=== PATIENT | male | born 1970 | race Caucasian/White ===

== ENCOUNTER 2022-01-05 09:16 | Day surgery (SDC) | payer OTHER ==
[2022-01-05] VITALS (11 sets, daily range): BP systolic 61–129; BP diastolic 37–87
[~2022-01-05] VITALS: Ht 175.3 cm; Wt 100.2 kg
[~2022-01-05 09:16] MED LIST: ATOR10TA52 PO; CARV6.2551 PO; LOSA25TA38 PO; NITR0.4S29 SL; TIOT1AER IN
[2022-01-05] MEDS ORDERED: IODIXANOL 320MG/ML 100ML BTL IV ONE (09:27)
[2022-01-05] MEDS ORDERED: ANGIOMAX 250 MG VIAL IV ONE (09:38)
[2022-01-05] MEDS ORDERED: MIDAZOLAM HCL 2MG/2ML 2ml VIAL (1mg/ml) ONE (09:39)
[2022-01-05] MEDS ORDERED: fentaNYL CITRATE 100 MCG/2 ML VL ONE (09:39)
[2022-01-05] MEDS ORDERED: VERAPAMIL 2.5MG/ML INJ 2ML VIAL IV ONE (09:39)
[2022-01-05] MEDS ORDERED: HEPARIN SODIUM (PORCINE) 5000 UNITS/ML 1ML VIAL ONE (09:39)
[2022-01-05] MEDS ORDERED: SODIUM CHL 0.9% 0 ML ONE (09:40)
[2022-01-05] MEDS ORDERED: LIDOCAINE 2%HCL (LOCAL ANESTH.) INJ 10ml MDV ONE (09:40)
[2022-01-05] MEDS ORDERED: NITROGLYCERIN 5MG/ML 10ML VIAL IV ONE (09:42)
[2022-01-05] MEDS ORDERED: SODIUM CHL 0.9% 50 ML ONE (09:49)
[2022-01-05] MEDS ORDERED: SODIUM CHLORIDE 0.9% 200 ML IV ONE (10:12)
== END 2022-01-05 12:20 | disposition home or self-care (01) ==
LOC: CATH 09:16
PROVIDERS: ATTEND Internal Medicine
DX: R94.39 Abnormal result of other cardiovascular function study (principal); I11.0 Hypertensive heart disease with heart failure; I50.9 Heart failure, unspecified; I25.10 Atherosclerotic heart disease of native coronary artery without angina pectoris; E78.5 Hyperlipidemia, unspecified; J44.9 Chronic obstructive pulmonary disease, unspecified; F17.200 Nicotine dependence, unspecified, uncomplicated; F15.10 Other stimulant abuse, uncomplicated; Z20.822 Contact with and (suspected) exposure to COVID-19
CPT/HCPCS: 93458; C1887; C1894; J1644; J2001; J2250; J3010; J3490; Q9967; U0003; 99152

== ENCOUNTER 2022-12-06 06:33 | Inpatient (IN) | payer OTHER ==
[~2022-12-06] VITALS: Ht 165.1 cm; Wt 90.0 kg
[2022-12-06 07:46] LABS: Basophils # (auto) 0.2 10 ^3/uL (0-0.2); Basophils % (auto) 2.6 % (0.0-2.0); Eosinophils # (auto) 0.1 10 ^3/uL (0-0.8); Eosinophils % (auto) 0.6 % (0.0-7.0); Hemoglobin 15.5 g/dL (13.5-17.5); Lymphocytes # (auto) 1.2 10 ^3/uL (0.4-5.4); Lymphocytes % (auto) 12.8 % (10.0-50.0); Mean Corpuscular Hemoglobin 27.6 pg (28.0-32.0); Mean Corpuscular Hgb Conc. 32.2 g/dL (32.0-36.0); Mean Corpuscular Volume 85.7 fL (80.0-100.0); Monocytes # (auto) 1.5 10 ^3/uL (0-1.3); Monocytes % (auto) 16.7 % (0.0-12.0); Neutrophils # (auto) 6.1 10 ^3/uL (1.6-8.6); Neutrophils % (auto) 67.3 % (37.0-80.0); Nucleated Red Blood Cells % 0.2 %; Red Blood Cells 5.61 10^6/uL (4.5-5.90); Red Cell Distribution Width 17.2 % (11.8-14.3); White Blood Cell 9.1 10^3/uL (4.4-10.8)
[2022-12-06 08:04] LABS: INR 1.42 (0.9-1.15); Partial Thromboplastin Time 30.1 sec (24.6-33.4)
[2022-12-06] MEDS ORDERED: IPRATROPIUM BROM 0.5 MG/2.5ML INH SOL NEB ONE (08:30)
[2022-12-06] MEDS ORDERED: DexAMETHasone SOD PHOS 10MG/1ML VIAL INJ IV ONE (08:30)
[2022-12-06] MEDS ORDERED: MAGNESIUM SULFATE 1GM/100ML 100 ML IV SCH (08:30)
[2022-12-06] MEDS ORDERED: FUROSEMIDE 40 MG/4 ML VIAL IV ONE (08:30)
[2022-12-06] MEDS ORDERED: ALBUTEROL SULF 2.5 MG/0.5ML(0.5%) NEB SOLN NEB ONE (08:30)
[2022-12-06 09:03] LABS: Calcium 9.1 mg/dL (8.5-10.1)
[2022-12-06 09:05] LABS: Albumin 3.4 g/dL (3.4-5.0); BUN/Creatinine Ratio 19.1 (10.0-20.0); Potassium 4.4 mmol/L (3.5-5.1)
[2022-12-06 09:08] LABS: Total Protein 6.7 g/dL (6.4-8.2)
[2022-12-06] MEDS ORDERED: LORazepam 2MG/ML-1ML VIAL IM ONE (09:45)
[2022-12-06] MEDS ORDERED: DOXYCYCLINE 100MG/250ML 250 ML IV ONE (10:00)
[2022-12-06] MEDS ORDERED: DEXTROSE (50%) 50ML SYRG IV PRN (10:45)
[2022-12-06] MEDS ORDERED: IPRATROPIUM BROM 0.5 MG/2.5ML INH SOL NEB PRN (10:45)
[2022-12-06] MEDS ORDERED: ACETAMINOPHEN 325 MG TAB PO PRN (10:45)
[2022-12-06] MEDS ORDERED: MORPHINE SULFATE INJ 2 MG/ml SYRG IV PRN (10:45)
[2022-12-06] MEDS ORDERED: NITROGLYCERIN 0.4 MG SL TAB SL PRN (10:45)
[2022-12-06] MEDS ORDERED: ALBUTEROL SULF 2.5 MG/0.5ML(0.5%) NEB SOLN NEB PRN (10:45)
[2022-12-06 11:00] VITALS: BP 133/94
[2022-12-06] MEDS ORDERED: ASPirin-EC 81 mg tab PO ONE (11:15)
[2022-12-06] MEDS ORDERED: InsuLIN REG 1unit/0.01ml Soln (100units/ml) SC SCH (11:30)
[2022-12-06] MEDS ORDERED: ACCU-CHEK COMFORT CURVE STRIP VI SCH (11:30)
[2022-12-06] MEDS ORDERED: PANTOPRAZOLE 40 MG TAB PO ONE (11:45)
[2022-12-06 12:31] LABS: Cholesterol 102 mg/dL (< 200); HDL Cholesterol 17 mg/dL (40-59); LDL Cholesterol 83 mg/dL (< 100); Triglycerides 121 mg/dL (< 150)
[2022-12-06] MEDS ORDERED: CARVEDILOL 3.125 MG TAB PO SCH (22:00)
[2022-12-06] MEDS ORDERED: ATORVASTATIN 20 MG TAB PO SCH (22:00)
[2022-12-07] MEDS ORDERED: cefTRIAXone 1GM/50ML D5W 50 ML IV SCH (09:00)
[2022-12-07] MEDS ORDERED: AZITHROMYCIN 500MG/ 250ML 250 ML IV SCH (10:00)
[2022-12-07] MEDS ORDERED: LOSARTAN POTASSIUM 25 MG TAB PO SCH (10:00)
[2022-12-07] MEDS ORDERED: FUROSEMIDE 40 MG/4 ML VIAL IV SCH (10:00)
[2022-12-07] MEDS ORDERED: ENOXAPARIN SOD 40 MG/0.4 ML SYRINGE SC SCH (10:00)
[2022-12-07] MEDS ORDERED: PANTOPRAZOLE 40 MG TAB PO SCH (10:00)
[2022-12-07] MEDS ORDERED: ASPirin-EC 81 mg tab PO SCH (10:00)
== END 2022-12-06 12:01 | disposition left against medical advice (07) | DRG 194 ==
LOC: EDBD 06:33 → ER 06:33 → EDUNIT# 06:33 → TELE 10:59
PROVIDERS: ADMIT Nurse Practitioner Family; ATTEND Nurse Practitioner Family
DX: I13.0 Hypertensive heart and chronic kidney disease with heart failure and stage 1 through stage 4 chronic kidney disease, or unspecified chronic kidney disease (principal); J96.01 Acute respiratory failure with hypoxia; G92.9 Unspecified toxic encephalopathy; G93.1 Anoxic brain damage, not elsewhere classified; E78.5 Hyperlipidemia, unspecified; I50.43 Acute on chronic combined systolic (congestive) and diastolic (congestive) heart failure; N17.9 Acute kidney failure, unspecified; R65.10 Systemic inflammatory response syndrome (SIRS) of non-infectious origin without acute organ dysfunction; E11.22 Type 2 diabetes mellitus with diabetic chronic kidney disease; J44.1 Chronic obstructive pulmonary disease with (acute) exacerbation; E66.01 Morbid (severe) obesity due to excess calories; Z53.29 Procedure and treatment not carried out because of patient's decision for other reasons; F17.210 Nicotine dependence, cigarettes, uncomplicated; N18.9 Chronic kidney disease, unspecified; Z91.199 Patient's noncompliance with other medical treatment and regimen due to unspecified reason; Z71.3 Dietary counseling and surveillance
CPT/HCPCS: 36415; 36600; 71045; 80053; 80061; 82306; 82805; 83036; 83605; 83735; 83880; 84443; 84484; 85025; 85379; 85610; 85730; 93005; 93306; 94640; 96365; 96367; 96375; 99291; G0378; J1100; J3490

== ENCOUNTER 2024-06-18 09:35 | Inpatient (IN) | payer OTHER ==
[~2024-06-18] VITALS: Ht 175.3 cm; Wt 75.0 kg
[~2024-06-18 09:35] MED LIST changes: +LOSA-533 PO; -LOSA25TA38 PO
--- NOTE | 2024-06-18 09:49 | ECG ---
[facility] Test Date: 2024-06-18 Test Time: 09:37:55 Pat Name: LEO ORTIZ Department: er Room: Gender: M Production Department Supervisor: gp : 1970 Requested By: SHANIKA MCKEON Order Number: [id number] Reading MD: Measurements Intervals [place] Rate: 123 P: 74 ME: 141 QRS: 189 QRSD: 112 T: 26 QT: 335 QTc: 480 Interpretive Statements Sinus tachycardia Consider right atrial enlargement Anterior infarct, old Please click the below link to view image of tracing.
[2024-06-18] MEDS ORDERED: FUROSEMIDE 40 MG/4 ML VIAL IV ONE (10:30)
[2024-06-18 10:56] LABS: Basophils # (auto) 0 10 ^3/uL (0-0.2); Eosinophils # (auto) 0 10 ^3/uL (0-0.8); Hematocrit 55.7 % (41.0-53.0); Lymphocytes # (auto) 0.8 10 ^3/uL (0.4-5.4); Platelet Count (auto) 147 10^3/uL (140-450); White Blood Cell 9.8 10^3/uL (4.4-10.8)
[2024-06-18 10:58] LABS: Chloride 93 mmol/L (98-107); Potassium 4.9 mmol/L (3.5-5.1); Sodium 132 mmol/L (136-145)
--- NOTE | 2024-06-18 10:58 | ED.PDOC ---
History of Present Illness HPI Comments 53 y/o M, with a Hx of CHF, COPD w/home O2 use, pre-DM, HLD, HTN, morbid obesity. and polysubstance abuse, presents with c/o shortness of breath, today. Patient endorses on having breathing difficulty with associated intermittent bilateral leg swelling for 1 year, with symptoms being exacerbated, recently, w ith methamphetamine use 4x days ago. Patient denies having any chest pain, cough, dyspnea, fever, chills, or other associated symptoms or modifie Chief Complaint: Shortness of Breath Time Seen by MD: 09:55 Primary Care Provider: varun Reviewed Notes: Nurses Notes, Medications, Allergies Allergies: Coded Allergies: NO KNOWN ALLERGIES (Unverified , 12/31/21) Home Meds Reported Medications Atorvastatin Calcium (ATORVASTATIN CALCIUM) 10 Mg Tab, 10 MG PO QPM, TAB 12/31/21 Tiotropium [place]-Olodaterol (Stiolto Respimat 2.5-2.5 Mcg/Act) 1 Aer Aer, 2 AER IN DAILY, AER 12/31/21 Nitroglycerin (Nitrostat) 0.4 Mg Sub, 0.4 MG SL PRN, INJ 12/31/21 Carvedilol (Carvedilol) 6.25 Mg Tab, 6.25 MG PO BID, TAB 12/31/21 Losartan Potassium (Losartan Potassium) 25 Mg Tab, 25 MG PO DAILY for 30 Days, MG 12/31/21 Information Source: Patient Mode of Arrival: EMS Severity: Moderate Timing: Months Duration: Since onset Prehospital treatment: None Past Medical History PAST MEDICAL HISTORY: CHF, COPD, DM (pre-DM), High Lipids, HTN Past Medical History (Other): morbid obesity, Surgical History: Cholecystectomy, Hernia Repair Family History Family History: Reviewed,noncontributory to illness, No family hx of DM Social History Smoker: Cigarettes Alcohol: Occasionally Drugs: Methamphetamine Lives In: Home Constitutional: denies: chills, diaphoresis, fatigue, fever, malaise, sweats, weakness, others EENTM: denies: blurred vision, double vision, ear bleeding, ear discharge, ear drainage, ear pain, ear ringing, eye pain, eye redness, hearing loss, mouth pain, mouth swelling, nasal discharge, nose bleeding, nose congestion, nose pain, photophobia, tearing, throat pain, throat swelling, voice changes, others Respiratory: reports: shortness of breath; denies: cough, hemoptysis, orthopnea, SOB at rest, SOB with excertion, stridor, wheezing, others Cardiovascular: denies: chest pain, dizzy spells, diaphoresis, Dyspnea on exertion, edema, irregular heart beat, left arm pain, lightheadedness, palpitations, PND, syncope, others Gastrointestinal: denies: abdomen distended, abdominal pain, blood streaked bowels, constipated, diarrhea, dysphagia, difficulty swallowing, hematemesis, melena, nausea, poor appetite, poor fluid intake, rectal bleeding, rectal pain, vomiting, others Genitourinary: denies: burning, dysuria, flank pain, frequency, hematuria, incontinence, penile discharge, penile sore, pain, testicle pain, testicle swelling, urgency, others Neurological: denies: dizziness, fainting, headache, left sided numbness, left sided weakness, numbness, paresthesia, pre-existing deficit, right sided numbness, right sided weakness, seizure, speech problems, tingling, tremors, weakness, others Musculoskeletal: denies: back pain, gout, joint pain, joint swelling, muscle pain, muscle stiffness, neck pain, others Integumetry: denies: bruises, change in color, change in hair/nails, dryness, laceration, lesions, lumps, rash, wounds, others Allergic/Immunocompromised: denies: Difficulty Healing, Frequent Infections, Hives, Itching, others Hematologic/Lymphatic: denies: anemia, blood clots, easy bleeding, easy bruising, swollen glands, others Endocrine: denies: excessive hunger, excessive sweating, excessive thirst, excessive urination, flushing, intolerance to cold, intolerance to heat, unexplained weight gain, unexplained weight loss, others Psychiatric: denies: anxiety, bipolar disorder, depression, hopeless, panic disorder, schizophrenia, sleepless, suicidal, others All Other Systems: Reviewed and Negative Physical Exam General Appearance: Moderate Distress, Obese HEENT: Normal ENT Inspection, Pharynx Normal, TMs Normal Neck: Full Range of Motion, Non-Tender, Normal, Normal Inspection Respiratory: Chest Non-Tender, Lungs Clear, No Accessory Muscle Use, No Respiratory Distress, Normal Breath Sounds Cardiovascular: No Edema, No JVD, No Murmur, No Gallop, Systolic Murmur Breast Exam: Deferred Gastrointestinal: No Organomegaly, Non Tender, No Pulsatile Mass, Normal Bowel Sounds, Soft Genitalia: Deferred Pelvic: Deferred Rectal: Deferred Extremities: No calf tenderness, Normal capillary refill, Pedal edema Musculoskeletal : Apperance: Normal Neurologic: Alert, business performance advisor II-XII nml as Tested, No Motor Deficits, Normal Affect, Normal Mood, No Sensory Deficits Cerebellar Function: Normal Reflexes: Normal Skin: Dry, Normal Color, Warm Lymphatic: No Adenopathy Was a procedure done? Was a procedure done?: No EKG EKG : Pulse Rate (adult): 123 [place]: Normal Cardiac Rhythm: ST Block: None Hypertrophy: None ST: Normal Differential Dx Considerations may include: AL, PE, PNA, bronchitis, Covid19, URI, viral syndrome, CHF exacerbation X-Ray, Labs, Meds, VS Vital Signs Date Time Temp Pulse Resp B/P (MAP) Pulse Ox O2 Delivery O2 Flow Rate FiO2 06/18/24 11:08 124 20 127/65 (85) 95 06/18/24 10:58 123 06/18/24 09:53 98.2 124 24 132/60 (84) 94 06/18/24 09:37 123 Lab Test 06/18/24 11:20 06/18/24 10:30 Range/Units Troponin I High Sensitivity 706 *H 577 *H </=54 ng/L White Blood Count 9.8 4.4-10.8 10^3/uL Red Blood Count 5.91 H 4.5-5.90 10^6/uL Hemoglobin 18.7 H 13.5-17.5 g/dL Hematocrit 55.7 H 41.0-53.0 % Mean Corpuscular Volume 94.3 80.0-100.0 fL Mean Corpuscular Hemoglobin 31.6 28.0-32.0 pg Mean Corpuscular Hemoglobin Concent 33.6 32.0-36.0 g/dL Red Cell Distribution Width 15.6 H 11.8-14.3 % Platelet Count 147 140-450 10^3/uL Mean Platelet Volume 8.1 6.9-10.8 fL Neutrophils (%) (Auto) 79.2 37.0-80.0 % Lymphocytes (%) (Auto) 7.8 L 10.0-50.0 % Monocytes (%) (Auto) 12.6 H 0.0-12.0 % Eosinophils (%) (Auto) 0.0 0.0-7.0 % Basophils (%) (Auto) 0.4 0.0-2.0 % Neutrophils # (Auto) 7.7 1.6-8.6 10 ^3/uL Lymphocytes # (Auto) 0.8 0.4-5.4 10 ^3/uL Monocytes # (Auto) 1.2 0-1.3 10 ^3/uL Eosinophils # (Auto) 0 0-0.8 10 ^3/uL Basophils # (Auto) 0 0-0.2 10 ^3/uL Nucleated Red Blood Cells 0.5 % D-Dimer, Quantitative 1.76 H 0.0-0.49 mg/L FEU Sodium Level 132 L 136-145 mmol/L Potassium Level 4.9 3.5-5.1 mmol/L Chloride Level 93 L 98-107 mmol/L Carbon Dioxide Level 34 H 20-31 mmol/L Anion Gap 5 5-15 Blood Urea Nitrogen 30 H 9-23 mg/dL Creatinine 1.92 H 0.700-1.30 mg/dL Glomerular Filtration Rate Calc 41 >90 mL/min BUN/Creatinine Ratio 15.6 10.0-20.0 Serum Glucose 147 H 74-106 mg/dL Calcium Level 9.6 8.7-10.4 mg/dL B-Type Natriuretic Peptide 763.38 0-100 pg/mL The CBC is within normal range The chemistry panel shows a creatinine that is 1.92 The BUN is 30 The D-dimer is elevated at 1.76 The BNP is elevated 763.38 The chest x-ray shows: IMPRESSION: Cardiomegaly with pulmonary vascular congestion and pulmonary edema. IV Hep-Lock was established The patient was given Lasix 40 mg IV push At this time, the patient was being admitted to the hospitalist It seems now that the patient has signed out AMA. Images Reviewed?: Images reviewed and evaluated by me Time of 1ST Reevaluation: 10:25 Reevaluation 1ST: Unchanged Patient Education/Counseling: Diagnosis, Treatment, Prognosis Family Education/Counseling: No Family Present Departure 1 Departure Time of Disposition: 14:23 Impression: Primary Impression: Acute on chronic diastolic heart failure Disposition: LEFT AGAINST MEDICAL ADVICE Condition: Fair Critical Care Note Critical Care Time?: Yes (45 min-critical care time only) Stability Stability form required: Yes Unstable for transfer: Telemetry monitoring (Telemetry monitoring required), ED Physician Assesment (Clinical assesment) Heart Score Heart Score: Heart Score Response (Comments) Value History Moderate Suspicious 1 EKG Normal 0 Age 45-64 1 Risk Factors >3 or Hx ASHD 2 Troponin 1-2 x's Normal limit 1 Total 5 I personally scribed for SHANIKA MCKEON MD ([email or web address]) on 06/18/24 at 10:58. Electronically submitted by Coleman Rivera ([email or web address]). SHANIKA MCKEON MD Jun 18, 2024 10:58
[2024-06-18 10:59] LABS: Anion Gap 5 (5-15); Carbon Dioxide 34 mmol/L (20-31)
[2024-06-18 11:00] LABS: Basophils % (auto) 0.4 % (0.0-2.0); Calcium 9.6 mg/dL (8.7-10.4); Hemoglobin 18.7 g/dL (13.5-17.5); Lymphocytes % (auto) 7.8 % (10.0-50.0); Mean Corpuscular Hemoglobin 31.6 pg (28.0-32.0); Mean Corpuscular Hgb Conc. 33.6 g/dL (32.0-36.0); Mean Corpuscular Volume 94.3 fL (80.0-100.0); Monocytes # (auto) 1.2 10 ^3/uL (0-1.3); Monocytes % (auto) 12.6 % (0.0-12.0); Neutrophils # (auto) 7.7 10 ^3/uL (1.6-8.6); Neutrophils % (auto) 79.2 % (37.0-80.0); Nucleated Red Blood Cells % 0.5 %; Red Blood Cells 5.91 10^6/uL (4.5-5.90); Red Cell Distribution Width 15.6 % (11.8-14.3)
[2024-06-18 11:04] LABS: BUN/Creatinine Ratio 15.6 (10.0-20.0); Blood Urea Nitrogen 30 mg/dL (9-23); Glucose 147 mg/dL (74-106)
--- NOTE | 2024-06-18 11:43 | DVH ---
EXAM: XY CHEST PORTABLE Indication: sob Technique: Single frontal view of the chest was obtained Comparison: XY CHEST PORTABLE on DOS: 12/06/22 FINDINGS: Lines and Tubes: None Pulmonary vascular congestion. Pleura: No effusion. No pneumothorax. Cardiomediastinal contours: Cardiomegaly. Bones: No acute osseous abnormality. IMPRESSION: Cardiomegaly with pulmonary vascular congestion and pulmonary edema.
[2024-06-18] MEDS ORDERED: ZOLPIDEM TARTRATE 5 MG TAB PO PRN (13:45)
[2024-06-18] MEDS ORDERED: MORPHINE SULFATE INJ 2 MG/ml SYRG IV PRN (13:45)
[2024-06-18] MEDS ORDERED: ACETAMINOPHEN 325 MG TAB PO PRN (13:45)
[2024-06-18] MEDS ORDERED: LORazepam 0.5 MG TAB PO PRN (13:45)
[2024-06-18] MEDS ORDERED: ALBUTEROL SULF 2.5 MG/0.5ML(0.5%) NEB SOLN NEB PRN (13:45)
[2024-06-18] MEDS ORDERED: IPRATROPIUM BROM 0.5 MG/2.5ML INH SOL NEB PRN (13:45)
[2024-06-18] MEDS ORDERED: NITROGLYCERIN 0.4 MG SL TAB SL PRN (13:45)
[2024-06-18] MEDS ORDERED: ONDANSETRON HCL 4 MG/2 ML VIAL IV PRN (13:45)
[2024-06-18] MEDS ORDERED: MAALOX PLUS or MAALOX 30 ML PO PRN (13:45)
[2024-06-18 14:03] VITALS: BP 127/65; PULSE 124; RESP 20; TEMP 98.2; O2SAT 95
--- NOTE | 2024-06-18 14:03 | DVHHP2 ---
History of Present Illness Reason for Visit: Shortness of breaths History of Present Illness 53-year-old past medical history of CHF COPD hypertension hyperlipidemia diabetes and drug abuse comes to the ED with complaints of shortness of breath patient had acute signs and symptoms of worsening shortness of breath for the past few days as of now patient showed acute signs of fluid overload as well as mild wheezing on evaluation in the ED patient was recommended for admission and further evaluation in inpatient setting patient was also noted to have elevated troponins and will likely require Cardiology evaluation inpatient as well Cardiovascular: CAD, CHF, HTN Review of Systems Constitutional: Yes: Weakness; No: Fever, Chills, Sweats, Malaise, Other Eyes: No: Pain, Vision change, Conjunctivae inflammation, Eyelid inflammation, Other, Redness ENT: No: Ear pain, Ear discharge, Nose pain, Nose discharge, Nose congestion, Mouth pain, Mouth swelling, Throat pain, Throat swelling, Other Respiratory: Cough, Shortness of breath, SOB with excertion, Wheezing; No: Dry, Hemoptysis, Pleuritic Pain, Sputum, Wheezing, Other Cardiovascular: Chest Pain, Palpitations; No: Orthopnea, Paroxysmal Noc. Dyspnea, Edema, Lt Headedness, Other Gastrointestinal: No: Nausea, Vomiting, Abdominal Pain, Diarrhea, Constipation, Melena, Hematochezia, Other Genitourinary: No Dysuria, No Frequency, No Incontinence, No Hematuria, No Retention, No Other Musculoskeletal: No: other, neck pain, shoulder pain, arm pain, back pain, hand pain, leg pain, foot pain Skin: No: Rash, Lesions, Jaundice, Bruising, Other Neurological: No: Weakness, Numbness, Incoordination, Change in speech, Confusion, Seizures, Other Allergies: Coded Allergies: NO KNOWN ALLERGIES (Unverified , 12/31/21) Medications Current Medications Medications Dose Ordered Sig/Zeinab Route Start Time Stop Time Status Last Admin Dose Admin Aspirin 81 mg DAILY PO 06/19/24 10:00 UNV Clopidogrel Bisulfate 75 mg DAILY PO 06/19/24 10:00 UNV Atorvastatin Calcium 40 mg HS PO 06/18/24 22:00 UNV Metoprolol Tartrate 12.5 mg Q12HR PO 06/18/24 22:00 UNV Acetaminophen 650 mg Q6HP PRN PO 06/18/24 13:45 UNV Zolpidem Tartrate 5 mg QHSP PRN PO 06/18/24 13:45 UNV Lorazepam 0.5 mg Q6HP PRN PO 06/18/24 13:45 UNV Docusate Sodium 100 mg DAILY PO 06/19/24 10:00 UNV Enoxaparin Sodium 70 mg Q12HR SC 06/18/24 22:00 UNV Ondansetron HCl 4 mg Q4HP PRN IV 06/18/24 13:45 UNV Al Hydrox/Mg Hydrox/Simethicone 30 ml Q6HPRN PRN PO 06/18/24 13:45 UNV Lisinopril 10 mg DAILY PO 06/19/24 10:00 UNV Nitroglycerin 0.4 mg Q5MINP PRN SL 06/18/24 13:45 UNV Morphine Sulfate 2 mg Q30M PRN IV 06/18/24 13:45 UNV Albuterol 2.5 mg Q4HPRN PRN NEB 06/18/24 13:45 UNV Ipratropium [place] 0.5 mg Q4HPRN PRN NEB 06/18/24 13:45 UNV Ceftriaxone Sodium 50 ml @ 100 mls/hr DAILY IV 06/19/24 10:00 UNV Azithromycin 500 mg DAILY PO 06/19/24 10:00 UNV Exam Vital Signs Vital Signs Date Time Temp Pulse Resp B/P (MAP) Pulse Ox O2 Delivery O2 Flow Rate FiO2 06/18/24 11:08 124 20 127/65 (85) 95 06/18/24 09:53 98.2 General Appearance: Alert, Oriented X3, Cooperative, moderate distress HEENT: Atraumatic, PERRLA Respiratory: Clear to auscultation (Bilateral wheezing) Cardiovascular: Regular rate, Normal S1, Normal S2 Abdominal: Normal bowel sounds, No tenderness Extremities: No clubbing, No cyanosis, No edema (Edema noted) Skin: No rashes, No breakdown Neuro: Normal gait, Normal speech Psych/Mental Status: Mood NL Labs/Xrays Labs Test 06/18/24 11:20 06/18/24 10:30 Range/Units Troponin I High Sensitivity 706 *H </=54 ng/L White Blood Count 9.8 4.4-10.8 10^3/uL Red Blood Count 5.91 H 4.5-5.90 10^6/uL Hemoglobin 18.7 H 13.5-17.5 g/dL Hematocrit 55.7 H 41.0-53.0 % Mean Corpuscular Volume 94.3 80.0-100.0 fL Mean Corpuscular Hemoglobin 31.6 28.0-32.0 pg Mean Corpuscular Hemoglobin Concent 33.6 32.0-36.0 g/dL Red Cell Distribution Width 15.6 H 11.8-14.3 % Platelet Count 147 140-450 10^3/uL Mean Platelet Volume 8.1 6.9-10.8 fL Neutrophils (%) (Auto) 79.2 37.0-80.0 % Lymphocytes (%) (Auto) 7.8 L 10.0-50.0 % Monocytes (%) (Auto) 12.6 H 0.0-12.0 % Eosinophils (%) (Auto) 0.0 0.0-7.0 % Basophils (%) (Auto) 0.4 0.0-2.0 % Neutrophils # (Auto) 7.7 1.6-8.6 10 ^3/uL Lymphocytes # (Auto) 0.8 0.4-5.4 10 ^3/uL Monocytes # (Auto) 1.2 0-1.3 10 ^3/uL Eosinophils # (Auto) 0 0-0.8 10 ^3/uL Basophils # (Auto) 0 0-0.2 10 ^3/uL Nucleated Red Blood Cells 0.5 % D-Dimer, Quantitative 1.76 H 0.0-0.49 mg/L FEU Sodium Level 132 L 136-145 mmol/L Potassium Level 4.9 3.5-5.1 mmol/L Chloride Level 93 L 98-107 mmol/L Carbon Dioxide Level 34 H 20-31 mmol/L Anion Gap 5 5-15 Blood Urea Nitrogen 30 H 9-23 mg/dL Creatinine 1.92 H 0.700-1.30 mg/dL Glomerular Filtration Rate Calc 41 >90 mL/min BUN/Creatinine Ratio 15.6 10.0-20.0 Serum Glucose 147 H 74-106 mg/dL Calcium Level 9.6 8.7-10.4 mg/dL B-Type Natriuretic Peptide 763.38 0-100 pg/mL Assessment/Plan Assessment/Plan Admit to telemetry NSTEMI Chest pain protocol Troponins elevated x2 Cardiology evaluation required to see for catheterization Acute on chronic CHF exacerbation BNP is elevated Monitor for signs of fluid overload BUN creatinine elevated SILVIANO versus CKD History of drug abuse unknown this is his drug based reaction Acute on chronic COPD exacerbation P.r.n. breathing treatments Patient with complaints of shortness of breath Elevated D-dimer V/Q scan pending We will treat COPD exacerbation as pneumonia with IV antibiotics p.o. antibiotics IV steroids b.i.d. History of diabetes Uncontrolled diabetes type 2 Hyperglycemia Insulin sliding scale moderate History of hypertension Morbid obesity History of polysubstance abuse Plan discussed with: Patient My Orders Orders - LUZMARIA LEMOS MD Procedure Category Date Status Time Admit ADMIT 06/18/24 Transmitted 13:44 Code Status CODE 06/18/24 Transmitted 13:44 Cardiac DIET 06/18/24 Transmitted Diet-2gna,Lofat,Lochol Dinner Aspirin Tablet PHA 06/19/24 Logged 10:00 Clopidogrel Bisulfate PHA 06/19/24 Logged (Plavix) 10:00 Atorvastatin (Lipitor) PHA 06/18/24 Logged 22:00 Metoprolol Tartrate PHA 06/18/24 Logged Tablet (Lopressor Ta 22:00 Acetaminophen Tablet PHA 06/18/24 Logged (Tylenol Tablet) 13:45 Zolpidem Tartrate PHA 06/18/24 Logged (Ambien) 13:45 Lorazepam Tablet PHA 06/18/24 Logged (Ativan Tablet) 13:45 Docusate Sodium PHA 06/19/24 Logged Capsule (Colace 10:00 Complete Blood Count LAB 06/19/24 Verified 04:00 Basic Metabolic Panel LAB 06/19/24 Verified 04:00 Enoxaparin Sodium PHA 06/18/24 Logged (Lovenox) 22:00 Ondansetron Hcl PHA 06/18/24 Logged (Zofran) 13:45 Electrocardigram EKG 06/18/24 Logged 13:44 Alum & Mag PHA 06/18/24 Logged Hydrox-Simethicone 13:45 Lisinopril Tablet PHA 06/19/24 Logged (Zestril Tablet) 10:00 Cardiac BART 06/18/24 In Process Rehabilitation - Outpa Nitroglycerin PHA 06/18/24 Logged Sublingual (Ntrostat 13:45 Morphine Sulfate PHA 06/18/24 Logged Injection 13:45 Stat Ekg For Chest BART 06/18/24 In Process Pain 13:44 Notify Md Of Changes [facility] 06/18/24 In Process From Base 13:44 Distance Learning Administrator For [facility] 06/18/24 In Process 24 Hours 13:44 Emergency Dysrhythmia [facility] 06/18/24 In Process Protocol 13:44 Rhythm Strips Once [facility] 06/18/24 In Process Every Shift 13:44 Oxygen By Nasal RT 06/18/24 Transmitted Cannula 13:44 * Cardiology Consult CONS 06/18/24 Transmitted 13:44 Albuterol Medneb PHA 06/18/24 Logged (Ventolin Medneb) 13:45 Ipratropium Medneb PHA 06/18/24 Logged (Atrovent Medneb) 13:45 Med Neb Initial RT 06/18/24 Logged Treatment 13:44 Ceftriaxone 1gm/50ml PHA 06/19/24 Logged D5w (Rocephin) 10:00 Azithromycin Tablet PHA 06/19/24 Logged (Zithromax Tablet) 10:00 Drug Screen LAB 06/18/24 Logged 13:55 Problem List: (1) Diabetes mellitus type 2 with complications, uncontrolled (2) Pneumonia (3) Acute CHF (4) COPD with acute exacerbation Date of Service: Jun 18, 2024 Billing Provider: LUZMARIA LEMOS MD Common Visit Codes: [id number] INP/OBS CARE (HIGH) LUZMARIA LEMOS MD Jun 18, 2024 14:03
[2024-06-18] MEDS ORDERED: METOPROLOL TARTRATE 25 MG TAB PO SCH (22:00)
[2024-06-18] MEDS ORDERED: ATORVASTATIN 20 MG TAB PO SCH (22:00)
[2024-06-18] MEDS ORDERED: ENOXAPARIN SOD 80 MG/0.8ML SYRINGE SC SCH (22:00)
[2024-06-19] MEDS ORDERED: CLOPIDOGREL BISULFATE 75 MG TAB PO SCH (10:00)
[2024-06-19] MEDS ORDERED: ASPirin 81 mg TAB PO SCH (10:00)
[2024-06-19] MEDS ORDERED: AZITHROMYCIN 250 MG TAB PO SCH (10:00)
[2024-06-19] MEDS ORDERED: LISINOPRIL 5 MG TAB PO SCH (10:00)
[2024-06-19] MEDS ORDERED: cefTRIAXone 1GM/50ML D5W 50 ML IV SCH (10:00)
[2024-06-19] MEDS ORDERED: DOCUSATE SOD 100 MG CAP PO SCH (10:00)
== END 2024-06-18 14:08 | disposition left against medical advice (07) | DRG 190 ==
LOC: ER 09:35 → EDBD 09:35 → TELE 13:44
PROVIDERS: ADMIT Hospitalist; ATTEND Hospitalist
DX: I21.4 Non-ST elevation (NSTEMI) myocardial infarction (principal); I50.41 Acute combined systolic (congestive) and diastolic (congestive) heart failure; J18.9 Pneumonia, unspecified organism; I11.0 Hypertensive heart disease with heart failure; E11.65 Type 2 diabetes mellitus with hyperglycemia; J44.0 Chronic obstructive pulmonary disease with (acute) lower respiratory infection; J44.1 Chronic obstructive pulmonary disease with (acute) exacerbation; E78.5 Hyperlipidemia, unspecified; F17.210 Nicotine dependence, cigarettes, uncomplicated; Z53.29 Procedure and treatment not carried out because of patient's decision for other reasons; E66.01 Morbid (severe) obesity due to excess calories; I25.10 Atherosclerotic heart disease of native coronary artery without angina pectoris; Z90.49 Acquired absence of other specified parts of digestive tract; Z68.24 Body mass index [BMI] 24.0-24.9, adult
CPT/HCPCS: 36415; 71045; 80048; 83880; 84484; 85025; 85379; 93005; G0378